=== PATIENT | male | born 1950 | race Caucasian/White ===

== ENCOUNTER 2019-03-03 22:17 | Emergency (ER) | payer BC, OTHER ==
[~2019-03-03] VITALS: Ht 177.8 cm; Wt 75.0 kg
[~2019-03-03 22:17] MED LIST: IBUP-1542 PO; TRAM50TA2 PO
[2019-03-03 22:30] VITALS: Ht 177.8 cm; Wt 75.0 kg
[2019-03-04] MEDS ORDERED: KETOROLAC 30 MG INJ IM STA (00:57)
--- NOTE | 2019-03-04 01:33 | ERD ---
ER Documentation Chief Complaint Chief Complaint LEFT ANKLE S/P INNJ; JUMP OFF SMALL STEP LADDER XTODAY HPI 68-year-old male with no reported past medical history who presents with complaint of left ankle pain status post injury. Patient states he was on a small step stool and he fell and twisted his ankle earlier today. Since that time is had worsening pain and swelling to the lateral aspect of ankle. Has been unable to bear weight since that time. He otherwise denies pain to the distal foot, knee pain, hip pain, back pain, head or neck pain or any other injuries, pain, shortness of breath, abdominal pain, headache, dizziness. Has not tried any medication for his symptoms. He otherwise is without complaint. Time examination patient unable to place weight on the left ankle. ROS All systems reviewed and are negative except as per history of present illness. Medications Home Meds Active Scripts Ibuprofen* (Motrin*) 600 Mg Tab, 600 MG PO Q6, #30 TAB Prov:TETO MCGREGOR PA-C 03/04/19 Tramadol HCl (Tramadol HCl) 50 Mg Tablet, 50 MG PO Q4 PRN for PAIN, #20 TAB Prov:TETO MCGREGOR PA-C 03/04/19 Allergies Allergies: Coded Allergies: No Known Allergy (Unverified , 03/04/19) PMhx/Soc Medical and Surgical Hx: pt denies Medical Hx, pt denies Surgical Hx Hx Alcohol Use: No Hx Substance Use: No Hx Tobacco Use: Yes Smoking Status: Current every day smoker FmHx Family History: No diabetes, No coronary disease, No other Physical Exam Vitals Vital Signs Date Temp Pulse Resp B/P (MAP) Pulse Ox O2 O2 Flow FiO2 Time Delivery Rate 03/04/19 98.1 60 18 121/76 97 Room Air 03:42 (91) 03/03/19 98.7 77 20 115/71 97 22:30 (86) Physical Exam I have reviewed the triage vital signs. Const: Well nourished, well developed, appears stated age Eyes: PERRL, no conjunctival injection HENT: NCAT, Neck supple without meningismus CV: RRR, Warm, well-perfused extremities RESP: CTAB, Unlabored respiratory effort GI: soft, non-tender, non-distended, no masses MSK: Left ankle with most prominent swelling to the lateral malleolus anteriorly and area of calcaneus, no obvious hematoma, tender to palpation, patient unable to bear weight on affected limb positive pain at posterior edge or tip of lateral malleolus. No pain at posterior edge or tip of medial malleolus. No pain at fibular head, No proximal tib-fib pain. No pain at base of the 5th of metatarsal, no pain at navicular bone. Sensation intact to light touch. Cap refill < 2 seconds. Skin: Warm, dry. No rashes Neuro: grossly non focal Psych: Appropriate mood and affect. Results 24 hrs Current Medications Medications Dose Sig/Paul Start Time Status Last (Trade) Ordered Route PRN Stop Time Admin Dose Reason Admin Ketorolac 30 mg ONCE STAT 03/04/19 DC 03/04/19 Tromethamine IM 00:57 01:04 (Toradol) 03/04/19 00:58 Procedures/MDM 68-year-old male presents with complaint of left ankle pain status post fall. I have low suspicion for any other acute injuries warranting further emergent care work-up other than stated below. Patient with calcaneal fracture on x-ray with no other acute findings. Appropriate splint applied. Patient neurovascular intact post splint application. ED course: X-ray of left ankle X-ray of left tib-fib X-ray of lumbar spine and hip without acute finding Toradol given in ED, will discharge with appropriate pain medications, crutches, splint Return precautions explained, patient advised follow-up with PMD DISPOSITION PLAN: We discussed follow up with the patient's primary care doctor within 24 to 48 hours. Patient counseled regarding my diagnostic impression and care plan. Prior to discharge all questions answered. Pt agrees with treatment plan and understands strict return precautions. Precautionary instructions provided including instructions to return to the ER if not improving or for any worsening or changing symptoms or concerns. Disclaimer: Inadvertent spelling and grammatical errors are likely due to EHR/dictation software use and do not reflect on the overall quality of patient care. Also, please note that the electronic time recorded on this note does not necessarily reflect the actual time of the patient encounter. Departure Diagnosis: Primary Impression: Ankle injury Condition: Stable Referrals: [facility] YOU HAVE RECEIVED A MEDICAL SCREENING EXAM AND THE RESULTS INDICATE THAT YOU DO NOT HAVE A CONDITION THAT REQUIRES URGENT TREATMENT IN THE EMERGENCY DEPARTMENT. FURTHER EVALUATION AND TREATMENT OF YOUR CONDITION CAN WAIT UNTIL YOU ARE SEEN IN YOUR DOCTORS OFFICE WITHIN THE NEXT 1-2 DAYS. IT IS YOUR RESPONSIBILITY TO MAKE AN APPOINTMENT FOR FOLOW-UP CARE. IF YOU HAVE A PRIMARY DOCTOR --you should call your primary doctor and schedule an appointment IF YOU DO NOT HAVE A PRIMARY DOCTOR YOU CAN CALL OUR PHYSICIAN REFERRAL HOTLINE AT IF YOU CAN NOT AFFORD TO SEE A PHYSICIAN YOU CAN CHOSE FROM THE FOLLOWING [facility] [address] [facility] [address] Delivery Service (HDS) [facility]. [facility] [address] [facility] [address] [facility]. [facility] [address] [facility] [facility]. [address] Additional Instructions: Call your primary care doctor TOMORROW for an appointment during the next 2-3 days.See the doctor sooner or return here if your condition worsens before your appointment time. TETO MCGREGOR PA-C Mar 04, 2019 01:33
[2019-03-04 03:42] VITALS: BP 121/76; PULSE 60; RESP 18
== END 2019-03-04 03:43 | disposition home or self-care (01) ==
LOC: FTE 22:17
DX: S99.912A Unspecified injury of left ankle, initial encounter (principal); F17.210 Nicotine dependence, cigarettes, uncomplicated; W11.XXXA Fall on and from ladder, initial encounter; Y92.9 Unspecified place or not applicable
CPT/HCPCS: 29515; 72100; 73520; 73590; 73610; 96372; 99284; J1885; 73521